=== PATIENT | female | born 1990 | race Caucasian/White ===

== ENCOUNTER 2018-08-06 13:22 | Emergency (ER) | payer MEDICAID ==
[~2018-08-06] VITALS: Ht 167.6 cm; Wt 90.0 kg
[~2018-08-06 13:22] MED LIST: FERR325C PO; IBUP-779 PO; LABE200T28 PO; MULT-1116 PO
[2018-08-06] MEDS ORDERED: HYDROCODONE/ACETAMINOPHEN 5/325MG TABLET PO ONE ×3 (14:15→16:30)
[2018-08-06] MEDS ORDERED: IBUPROFEN 600MG TABLET PO ONE (14:15)
[2018-08-06] MEDS ORDERED: KETOROLAC 60MG/2ML VIAL IM ONE (14:30)
[2018-08-06 16:50] VITALS: BP 133/86
== END 2018-08-06 17:17 | disposition home or self-care (01) ==
LOC: ER 13:22
DX: J45.909 Unspecified asthma, uncomplicated (principal); M25.512 Pain in left shoulder; M54.2 Cervicalgia; R51 Headache
CPT/HCPCS: 70450; 72070; 72100; 72125; 73030; 73130; 81025; 96372; 99284; J1885